=== PATIENT | female | born 1995 | race Caucasian/White ===

== ENCOUNTER → 2019-03-28 16:07 | Outpatient (CLI) | payer OTHER, SELFPAY ==
--- NOTE | 2019-03-28 16:16 | MRI_ITS ---
STUDY: MRI CERVICAL SPINE WITHOUT CONTRAST REASON FOR EXAM: Female, 23 years old. CERVICAL STRAIN -- injury 11/2018, has neck, left shoulder pain TECHNIQUE: Standardized fat and water weighted pulse sequences were obtained in the sagittal and axial planes. COMPARISON: None FINDINGS: Normal foramen magnum and brainstem-cervical cord junction. Normal craniovertebral junction. Normal anterior atlantoaxial articulation. Normal odontoid process. Cervical kyphosis of uncertain etiology.. Normal vertebral bodies and posterior osseous elements. C2-3: Normal endplates. Normal disc height, signal and morphology. Normal central canal and intervertebral neural foramina. C3-4: Normal endplates. Normal disc height, signal and morphology. Normal central canal and intervertebral neural foramina. C4-5: Normal endplates. Normal disc height, signal and morphology. Normal central canal and intervertebral neural foramina. C5-6: Normal endplates. Normal disc height, signal and tiny central disc protrusion. Normal central canal and intervertebral neural foramina. C6-7: Normal endplates. Normal disc height, signal and morphology. Normal central canal and intervertebral neural foramina. C7-T1: Normal endplates. Normal disc height, signal and morphology. Normal central canal and intervertebral neural foramina. Normal cervical cord. Normal visualized soft tissue structures. MRI/Spine Cervical (Routine) IMPRESSION: No evidence for acute fracture or other significant bony pathology Abnormal cervical kyphosis and tiny central disc protrusion at C5-6 without significant spinal stenosis or cord compression. Electronically Signed: Glen Rendon MD at 19:07 EST , Service support ,
--- NOTE | 2019-03-28 16:26 | RAD_ITS ---
STUDY: X-RAY - ORBITS REASON FOR EXAM: Female, 23 years old. MRI clearance. Rule out foreign body. TECHNIQUE: view(s) of the orbits were obtained. COMPARISON: None. FINDINGS: Normal bilateral orbits without a metallic orbital foreign body. Normal visualized facial bones. Normal paranasal sinuses. The soft tissue structures are unremarkable. RAD/Orbits for Foreign Body IMPRESSION: No demonstrated metallic orbital foreign body. The patient is cleared for an MRI examination. Electronically Signed: Toni Hernandez DO at 17:06 EST Tel [phone], Service support ,
== END ==
PROVIDERS: PCP Family Medicine; Referring Provider Family Medicine; Visit Provider Family Medicine
DX: S16.1XXA Strain of muscle, fascia and tendon at neck level, initial encounter (principal)
CPT/HCPCS: 70030; 72141

== ENCOUNTER → 2019-04-08 16:55 | Outpatient (CLI) | payer OTHER, SELFPAY ==
[2019-04-01 16:35] VITALS: BMI 20.7
--- NOTE | 2019-04-08 17:30 | MRI_ITS ---
STUDY: MRI LEFT SHOULDER REASON FOR EXAM: Female, 23 years old. LEFT shoulder pain and decreased ROM x 4 months TECHNIQUE: Standardized fat and water weighted pulse sequences were obtained in all 3 orthogonal planes. COMPARISON: None. FINDINGS: Normal supraspinatus tendon. Normal infraspinatus tendon. Normal subscapularis tendon. Normal teres minor tendon. Proximal muscles of the rotator cuff are intact. No joint or bursal effusion. Narrow signal is normal, with no fracture, bone contusion, or osteonecrosis. Normal biceps labral complex. Normal intracapsular long biceps tendon. Normal labrum. Normal rotator interval. Normal acromioclavicular articulation. There is a Type II morphology (curved), with a neutral orientation. Normal visualized coracohumeral and coracoacromial ligaments. MRI/Upper Ext Joint Only(Routine) IMPRESSION: Normal MRI of the shoulder. Electronically Signed: Juliann Zarate MD at 21:36 EST Tel , Service support ,
== END ==
PROVIDERS: PCP Family Medicine; Referring Provider Family Medicine; Visit Provider Family Medicine
DX: S43.492A Other sprain of left shoulder joint, initial encounter (principal)
CPT/HCPCS: 73221

== ENCOUNTER → 2019-04-12 14:08 | Outpatient (CLI) | payer BC, SELFPAY ==
[2019-04-01 16:35] VITALS: BMI 20.7
[2019-04-12 14:17] VITALS: BP 151/61; PULSE 101; RESP 16; TEMP 36.3; O2SAT 98; BMI 20.6
[2019-04-12] MEDS: Cosyntropin 0.25 MG Vial IM (14:35)
[2019-04-12 14:59] LABS: CORTISOL SERUM < 0.50 ug/dL (3.09-22.40)
== END ==
LOC: MEDOUTP 14:11
PROVIDERS: PCP Family Medicine; Referring Provider Internal Medicine Endocrinology, Diabetes & Metabolism; Visit Provider Internal Medicine Endocrinology, Diabetes & Metabolism
DX: E27.40 Unspecified adrenocortical insufficiency (principal)
CPT/HCPCS: 36415; 82533; 96372; J0834

== ENCOUNTER → 2019-04-21 14:09 | Outpatient (CLI) | payer BC, SELFPAY ==
[2019-04-12 14:17] VITALS: BMI 20.6
[2019-04-21 14:49] LABS: ALB/GLOB Ratio 1.1 RATIO (0.9-2.4); AST(SGOT) 12 U/L (15-37); Alanine Aminotransfer ALT/SGPT 34 U/L (13-56); Albumin, Serum 3.5 g/dL (3.2-5.0); Alkaline Phosphatase 47 U/L (45-117); Anion Gap 6 (5-15); BUN 17 mg/dL (7-18); BUN/Creat Ratio 15.9 RATIO (10-20); Calcium,Total 8.7 mg/dL (8.5-10.1); Chloride 112 mmol/L (98-107); Creatinine, Serum 1.07 mg/dL (0.55-1.02); EST Glomerular Filtration Rate 67 mL/min (>60); Est Glom Filt Rate - Afr Amer 81 mL/min (>60); Estradiol 36.6 pg/mL; Follicle Stimulating Hormone 4.7 mIU/mL; Globulin 3.2 g/dL (2.2-4.2); Glucose 131 mg/dL (74-106); Luteinizing Hormone 6.6 mIU/mL; Potassium 3.8 mmol/L (3.5-5.1); Protein, Total 6.7 g/dL (6.4-8.2); Sodium Level 142 mmol/L (136-145); T4 Free Direct 1.04 ng/dL (0.76-1.46)
[2019-04-23 10:39] LABS: Adrenocorticotropic Hormone 1.9 pg/mL (7.2-63.3); Insulin Like Growth Factor 361 ng/mL (93-342)
== END ==
PROVIDERS: PCP Family Medicine; Referring Provider Internal Medicine Endocrinology, Diabetes & Metabolism; Visit Provider Internal Medicine Endocrinology, Diabetes & Metabolism
DX: E27.40 Unspecified adrenocortical insufficiency (principal); E23.0 Hypopituitarism; R55 Syncope and collapse
CPT/HCPCS: 36415; 80053; 82024; 82670; 83001; 83002; 84305; 84439

== ENCOUNTER → 2019-05-06 16:11 | Outpatient (CLI) | payer BC, SELFPAY ==
[2014-09-27 15:11] VITALS: BMI 19.7
--- NOTE | 2019-05-06 16:11 | MRI_ITS ---
STUDY: MRI BRAIN WITH AND WITHOUT CONTRAST REASON FOR EXAM: Female, 23 years old. PITUITARY DYSFUNCTIONS, syncope and low cortisol levels TECHNIQUE: Standardized multiplanar fat and water weighted pulse sequences were obtained. 11ml Dotarem via IV was administered for the contrast portion of the examination. COMPARISON: None. FINDINGS: No intracranial mass, mass effect, or midline shift. No hemorrhage, territorial infarct, or acute ischemia. No enhancing lesion following the administration of contrast. Normal size of the ventricles and extra-axial spaces for the patient''s age. Normal white matter tracts of the supratentorial brain. There is no extra-axial fluid accumulation. Normal flow voids within the major intracranial circulation suggesting patency by spin echo criteria. Pituitary gland is normal in height measuring 5 mm. There is no hypoenhancing lesion to indicate microadenoma. Pituitary stalk is in the midline and normal in thickness. Optic chiasm and cavernous carotid arteries are unremarkable. Normal midbrain, nathaniel and medulla. Normal cerebellum. Normal basal cisterns. Normal bilateral temporal bones. Normal bilateral internal auditory canals. No demonstrated orbital abnormality, within the constraints of a routine brain study. Normal visualized paranasal sinuses. Normal calvarium and skull base. Normal visualized soft tissue structures. MRI/Brain W/WO Contrast IMPRESSION: Normal unenhanced and enhanced MRI of the brain. No evidence of pituitary mass or microadenoma. Electronically Signed: Juliann Zarate MD at 17:34 EST Tel , Service support ,
== END ==
PROVIDERS: PCP Family Medicine; Referring Provider Internal Medicine Endocrinology, Diabetes & Metabolism; Visit Provider Internal Medicine Endocrinology, Diabetes & Metabolism
DX: E23.7 Disorder of pituitary gland, unspecified (principal)
CPT/HCPCS: 70553; A9575

== ENCOUNTER → 2019-07-28 08:14 | Outpatient (CLI) | payer BC, SELFPAY ==
[2019-07-25 16:00] VITALS: BMI 20.6
[2019-07-28 08:27] VITALS: BP 107/68; PULSE 91; RESP 16; O2SAT 99; BMI 22.4
[2019-07-28] MEDS: Cosyntropin 0.25 MG Vial IM (08:32)
[2019-07-28 09:48] VITALS: BP 104/68; PULSE 86; RESP 16; O2SAT 100
== END ==
PROVIDERS: PCP Family Medicine; Referring Provider Internal Medicine Endocrinology, Diabetes & Metabolism; Visit Provider Internal Medicine Endocrinology, Diabetes & Metabolism
DX: E27.40 Unspecified adrenocortical insufficiency (principal)
CPT/HCPCS: 82533; 96372; J0834